=== PATIENT | female | born 1955 | race Hispanic/Latino ===

== ENCOUNTER 2016-10-08 20:13 | Emergency (ER) | payer OTHER ==
[~2016-10-08] VITALS: Ht 162.6 cm; Wt 60.9 kg
[2016-10-08 20:54] LABS: HEMATOCRIT 36.6 % (36.0-46.0); MCH 28.2 PG (29.0-34.0); MCHC 33.6 G/DL (30.0-36.0); MCV 83.9 FL (83-99); MEAN PLAT.VOLUME 11.5 uM^3 (9.5-12.4); PLATELET COUNT 161 K/uL (156-360); RBC DIS.WIDTH-CV 12.9 % (11.8-14.6); RBC DIS.WIDTH-SD 39.3 % (39-53); RED BLOOD COUNT 4.36 M/uL (3.80-5.20); WHITE BLOOD COUNT 6.3 K/uL (4.1-10.2)
[2016-10-08 21:02] LABS: CHLORIDE 106 mEq/L (99-109); POTASSIUM 3.8 mEq/L (3.7-5.4); SODIUM 141 mEq/L (136-147)
[2016-10-08 21:04] LABS: GLUCOSE 120 mg/dL (70-99)
[2016-10-08 21:05] LABS: ANION GAP 11 MEQ/L (2-14)
[2016-10-08 21:08] LABS: GFR ESTIMATE (CALCULATED) > 59 mL/min/
[2016-10-08 21:09] LABS: UREA NITROGEN (BUN) 20 mg/dL (9-23)
[2016-10-08 21:14] LABS: TROP-I INTERPRETATION NEGATIVE; TROPONIN-I < 0.01 ng/mL (0.0-0.30)
[2016-10-08 23:29] VITALS: BP 159/82
== END 2016-10-08 23:29 | disposition home or self-care (01) ==
LOC: EME 20:13
DX: R07.9 Chest pain, unspecified (principal); E11.9 Type 2 diabetes mellitus without complications; I10 Essential (primary) hypertension; Z53.20 Procedure and treatment not carried out because of patient's decision for unspecified reasons
CPT/HCPCS: 71020; 80048; 84484; 85027; 93005; 99281; 99284

== ENCOUNTER 2016-11-27 02:47 | Emergency (ER) | payer OTHER ==
[~2016-11-27] VITALS: Ht 157.5 cm; Wt 59.5 kg
[2016-11-27 06:26] VITALS: BP 148/89
== END 2016-11-27 06:27 | disposition home or self-care (01) ==
LOC: EME 02:47
DX: I10 Essential (primary) hypertension (principal)
CPT/HCPCS: 70450; 99281; 99284